=== PATIENT | female | born 1950 | race Caucasian/White ===

== ENCOUNTER 2017-06-30 13:29 | Inpatient (IN) | payer OTHER, MEDICARE ==
[2017-06-30] VITALS (9 sets, daily range): BP systolic 102–210; BP diastolic 51–143; PULSE 62–85; RESP 16–24; TEMP 98–100.8; O2SAT 91–100
[~2017-06-30] VITALS: Ht 142.2 cm; Wt 146.3 kg
[~2017-06-30 13:29] MED LIST: FURO40TA PO; LEVA250T14 PO; LEVO175T2 PO; LISI-360 PO
[2017-06-30] MEDS ORDERED: TRAM50TA PO (14:01)
[2017-06-30] MEDS ORDERED: LISI10TA3 PO (14:01)
[2017-06-30] MEDS ORDERED: LEVO175T2 PO (14:01)
[2017-06-30] MEDS ORDERED: SODIUM CHLOR 0.9% 1000 ML INJ 1,000 ML IV SCH (14:19)
--- NOTE | 2017-06-30 14:21 | PD ---
HPI Chief Complaint: Flank/Kidney Pain Time Seen by Provider: 14:05 Travel History International Travel<30 days: No Contact w/Intl Traveler<30days: No Traveled to known affect area: No History of Present Illness HPI 67 year old female presents for evaluation of severe right sided abdominal and flank pain. She states that this began earlier this morning and that her pain was so severe that she thought she was going to pass out. She has never had pain like this before. Roughly one week ago she was told she had a renal stone that was too large to pass and that she would need to lose weight before lithotripsy could be performed. She was also diagnosed with a Urinary tract infection on Tuesday for which she was prescribed Cipro. She has history of bowel obstruction following a herniorrhaphy. She acknowledges nausea without vomiting, no diarrhea or constipation. She has fevers and chills. She denies chest pain and shortness of breath. PFSH Past Medical History Asthma: No Autoimmune Disease: No Blood Disorders: No Cancer: No Cardiovascular Problems: Yes (MITRO VALVE PROLAPS ) COPD: No Endocrine: No Gastrointestinal Disorders: Yes (BOWEL OBSTRUCTION) GERD: Yes Glaucoma: No Genitourinary: No Hepatitis: No Hiatal Hernia: Yes Hypertension: Yes Medical other: Yes (obesity, osteoarthritis, hemorrhoids) Musculoskeletal: No Neurologic: No Psychiatric: No Respiratory: Yes Sleep Apnea: No Thyroid Disease: Yes (Hypo) Ulcer: No Past Surgical History Abdominal Surgery: Yes (partial colectomy, umbilical hernia repair) Cardiac Surgery: No Ear Surgery: No Endocrine Surgery: No Eye Surgery: No Genitourinary Surgery: No Gynecologic Surgery: No Oral Surgery: Yes (T&A) Thoracic Surgery: No Tonsillectomy: Yes Other Surgery: Yes Social History Alcohol Use: Yes (TWO DRINKS A WEEK ) Tobacco Use: No Substance Use: No Allergies-Medications (Allergen,Severity, Reaction): Coded Allergies: No Known Allergies (Verified Allergy, Unknown, 06/30/17) Uncoded Allergies: NKDA (Allergy, Unknown, 04/02/03) NONE (Allergy, Unknown, 04/02/03) Reported Meds & Prescriptions Reported Meds & Active Scripts Active Reported Tramadol (Tramadol HCl) 50 Mg Tab 50 Mg PO Q6H PRN Levothyroxine (Levothyroxine Sodium) 175 Mcg Tab 175 Mcg PO DAILY Lisinopril 10 Mg Tab 10 Mg PO DAILY Review of Systems Except as stated in HPI: all other systems reviewed are Neg General / Constitutional: Positive: Fever, Chills Eyes: No: Blurred Vision HENT: Positive: Lightheadedness, No: Headaches Cardiovascular: No: Chest Pain or Discomfort Respiratory: No: Cough, Shortness of Breath Gastrointestinal: Positive: Nausea, No: Vomiting, Diarrhea Genitourinary: Positive: Urgency, Frequency, Dysuria Skin: No Rash, No Itching Neurologic: No: Weakness, Dizziness Physical Exam Narrative GENERAL: patient is laying in bed moaning in pain. SKIN: Warm and dry. HEAD: Atraumatic. Normocephalic. EYES: Pupils equal and round. No scleral icterus. No injection or drainage. ENT: No nasal bleeding or discharge. Mucous membranes pink and moist. NECK: Trachea midline. No JVD. CARDIOVASCULAR: Regular rate and rhythm. RESPIRATORY: No accessory muscle use. Clear to auscultation. Breath sounds equal bilaterally. GASTROINTESTINAL: Abdomen soft, Tender to palpation in the R flank, RLQ and CVA tenderness. Hepatic and splenic margins not palpable. MUSCULOSKELETAL: Extremities without clubbing, cyanosis, or edema. No obvious deformities. NEUROLOGICAL: Awake and alert. No obvious cranial nerve deficits. Motor grossly within normal limits. Five out of 5 muscle strength in the arms and legs. Normal speech. PSYCHIATRIC: Appropriate mood and affect; insight and judgment normal. Data Data Last Documented VS Vital Signs Date Time Temp Pulse Resp B/P (MAP) Pulse Ox O2 Delivery O2 Flow Rate FiO2 06/30/17 15:21 77 18 210/93 (132) 99 Nasal Cannula 3.00 06/30/17 15:06 98.4 Orders Orders Urinalysis - C+S If Indicated (06/30/17 13:34) Complete Blood Count With Diff (06/30/17 14:19) Comprehensive Metabolic Panel (06/30/17 14:19) Lipase (06/30/17 14:19) Lactic Acid (06/30/17 14:19) Prothrombin Time / Inr (Pt) (06/30/17 14:19) Act Partial Throm Time (Ptt) (06/30/17 14:19) Ct Abd/Pel W Iv Contrast(Rout) (06/30/17 14:19) Iv Access Insert/Monitor (06/30/17 14:19) Ecg Monitoring (06/30/17 14:19) Oximetry (06/30/17 14:19) Ondansetron Inj (Zofran Inj) (06/30/17 14:30) Sodium Chlor 0.9% 1000 Ml Inj (Ns 1000 M (06/30/17 14:19) Sodium Chloride 0.9% Flush (Ns Flush) (06/30/17 14:30) Electrocardiogram (06/30/17 14:19) Ketorolac Inj (Toradol Inj) (06/30/17 14:30) Sodium Chlor 0.9% 1000 Ml Inj (Ns 1000 M (06/30/17 14:30) Morphine Inj (Morphine Inj) (06/30/17 15:15) Iohexol 350 Inj (Omnipaque 350 Inj) (06/30/17 16:08) Insert Temp Sensing Clemens Cath (06/30/17 16:18) Hydromorphone Pf Inj (Dilaudid Pf Inj) (06/30/17 16:45) Labs Laboratory Tests Test 06/30/17 13:34 06/30/17 13:50 06/30/17 14:30 Urine Color LIGHT-YELLOW Urine Turbidity CLEAR Urine pH 7.0 Urine Specific [place] 1.016 Urine Protein NEG mg/dL Urine Glucose (UA) NEG mg/dL Urine Ketones NEG mg/dL Urine Occult Blood TRACE Urine Nitrite NEG Urine Bilirubin NEG Urine Urobilinogen LESS THAN 2.0 MG/DL Urine Leukocyte Esterase MOD Urine RBC 6 /hpf Urine WBC 21 /hpf Urine Bacteria RARE /hpf Microscopic Urinalysis Comment CULTURE INDICATED White Blood Count 9.7 TH/MM3 Red Blood Count 4.32 MIL/MM3 Hemoglobin 11.8 GM/DL Hematocrit 36.8 % Mean Corpuscular Volume 85.2 FL Mean Corpuscular Hemoglobin 27.4 PG Mean Corpuscular Hemoglobin Concent 32.1 % Red Cell Distribution Width 15.3 % Platelet Count 169 TH/MM3 Mean Platelet Volume 9.0 FL Neutrophils (%) (Auto) 86.4 % Lymphocytes (%) (Auto) 6.6 % Monocytes (%) (Auto) 5.8 % Eosinophils (%) (Auto) 0.8 % Basophils (%) (Auto) 0.4 % Neutrophils # (Auto) 8.3 TH/MM3 Lymphocytes # (Auto) 0.6 TH/MM3 Monocytes # (Auto) 0.6 TH/MM3 Eosinophils # (Auto) 0.1 TH/MM3 Basophils # (Auto) 0.0 TH/MM3 CBC Comment DIFF FINAL Differential Comment Prothrombin Time 10.5 SEC Prothromb Time International Ratio 1.0 RATIO Activated Partial Thromboplast Time 23.1 SEC Blood Urea Nitrogen 14 MG/DL Creatinine 0.72 MG/DL Random Glucose 122 MG/DL Total Protein 7.3 GM/DL Albumin 3.8 GM/DL Calcium Level 9.0 MG/DL Alkaline Phosphatase 50 U/L Aspartate Amino Transf (AST/SGOT) 13 U/L Alanine Aminotransferase (ALT/SGPT) 19 U/L Total Bilirubin 0.8 MG/DL Sodium Level 140 MEQ/L Potassium Level 3.7 MEQ/L Chloride Level 104 MEQ/L Carbon Dioxide Level 27.3 MEQ/L Anion Gap 9 MEQ/L Estimat Glomerular Filtration Rate 81 ML/MIN Lipase 105 U/L Lactic Acid Level 1.2 mmol/L MDM Medical Decision Making Medical Screen Exam Complete: Yes Emergency Medical Condition: Yes Differential Diagnosis Nephrolithiasis, Urinary tract infection, Hydronephrosis, Pyelonephritis, appendicitis Narrative Course CBC, CMP, U/A, noncontrast CT abdomen & pelvis. Patient roomed emergency department, appears quite uncomfortable, CT confirms an 11 x 13 mm obstructing UPJ stone. Feeling more comfortable after Toradol and morphine she still having some pain though, and he wanted was ordered. Patient was discussed with Dr. Rock recommends admission and nothing by mouth after midnight for probable stent placement in the morning. Still awaiting UA results the patient was discussed with Dr. Rinaldi for admission. Patient does have some white blood cells present in the urine but nitrate negative, not wholly impressive, I have ordered a dose of Rocephin however to make sure she is covered until urine culture can be followed. Diagnosis Primary Impression: Uropathy, obstructive Disposition: 01 DISCHARGE HOME Condition: Stable Frank Gage MD Jun 30, 2017 14:21
[2017-06-30] MEDS ORDERED: SODIUM CHLORIDE 0.9% FLUSH 10 ML FLUSH IV FLUSH PRN ×2 (14:30→17:30)
[2017-06-30] MEDS ORDERED: KETOROLAC TROMETHAMINE 30 MG/ML (IVP) VIAL IVP ONE (14:30)
[2017-06-30] MEDS ORDERED: SODIUM CHLOR 0.9% 1000 ML INJ 1,000 ML IV ONE (14:30)
[2017-06-30] MEDS ORDERED: ONDANSETRON HCL 4 MG/2 ML VIAL IVP ONE (14:30)
[2017-06-30] MEDS ORDERED: MORPHINE SULFATE 4 MG/ML INJ IV PUSH ONE (15:15)
[2017-06-30 15:22] LABS: AUTOMATED NEUTROPHIL # 8.3 TH/MM3 (1.8-7.7); BASOPHIL % 0.4 % (0.0-2.0); EOSINOPHIL # 0.1 TH/MM3 (0-0.4); EOSINOPHIL % 0.8 % (0.0-4.0); HEMATOCRIT 36.8 % (35.0-46.0); HEMO FLAGS DIFF FINAL; LYMPH % 6.6 % (9.0-44.0); LYMPHOCYTE # 0.6 TH/MM3 (1.0-4.8); MEAN CELL VOLUME 85.2 FL (80.0-100.0); MEAN CORPUSCULAR HEMOGLOBIN 27.4 PG (27.0-34.0); MEAN CORPUSCULAR HGB CONC 32.1 % (32.0-36.0); MONO % 5.8 % (0.0-8.0); NEUT % 86.4 % (16.0-70.0); PLATELET COUNT 169 TH/MM3 (150-450); RED BLOOD COUNT 4.32 MIL/MM3 (4.00-5.30); RED CELL DISTRIBUTION WIDTH 15.3 % (11.6-17.2); WHITE BLOOD COUNT 9.7 TH/MM3 (4.0-11.0)
[2017-06-30 15:38] LABS: ANION GAP 9 MEQ/L (5-15); APTT (PATIENT) 23.1 SEC (24.3-30.1); AST (GOT) 13 U/L (15-37); BICARBONATE 27.3 MEQ/L (21.0-32.0); BLOOD UREA NITROGEN 14 MG/DL (7-18); CHLORIDE 104 MEQ/L (98-107); GLOMERULAR FILTRATION RATE 81 ML/MIN (>89); POTASSIUM 3.7 MEQ/L (3.5-5.1); PROTHROMBIN TIME - PATIENT 10.5 SEC (9.8-11.6); SODIUM (NA) 140 MEQ/L (136-145)
[2017-06-30 15:42] LABS: ALKALINE PHOSPHATASE 50 U/L (45-117); ALT (GPT) 19 U/L (10-53); TOTAL BILIRUBIN ADULT 0.8 MG/DL (0.2-1.0)
[2017-06-30] MEDS ORDERED: IOHEXOL 350 MG/ML 10 ML VIAL (for RAD DIAG) IVCONTRAST ONE (16:08)
--- NOTE | 2017-06-30 16:25 | RADRPT ---
EXAM DATE/TIME: 06/30/2017 16:00 [facility] COMPARISON: No previous studies available for comparison. INDICATIONS : Right flank pain IV CONTRAST: 67 cc Omnipaque 350 (iohexol) IV ORAL CONTRAST: No oral contrast ingested. RADIATION DOSE: 29.38 CTDIvol (mGy) MEDICAL HISTORY : Hypertension. Cardiovascular disease SURGICAL HISTORY : Hernia repair ENCOUNTER: Initial ACUITY: 1 day PAIN SCALE: 10/10 LOCATION: Right flank TECHNIQUE: Volumetric scanning of the abdomen and pelvis was performed. Using automated exposure control and ad justment of the mA and/or kV according to patient size, radiation dose was kept as low as reasonably achievable to obtain optimal diagnostic quality images. DICOM format image data is available electro nically for review and comparison. FINDINGS: LOWER LUNGS: The visualized lower lungs are clear. LIVER: Homogeneous density without lesion. The liver measures 18.2 cm. There is no dilation of the biliary tree. No calcified gallstones. SPLEEN: Normal size without lesion. PANCREAS: Within normal limits. KIDNEYS: Right kidney demonstrates delayed nephrogram with hydronephrosis caused by a 13 x 11 mm stone at the ureteropelvic junction. There is perinephric inflammation. The left kidney is within normal limits. ADRENAL GLANDS: There is a left adrenal gland mass arising from the lateral limb measuring 2.5 x 2.1 cm with Hounsfie ld measurements of 31. Right adrenal gland is within normal limits. VASCULAR: There is no aortic aneurysm. There is mild atherosclerotic disease. BOWEL/MESENTERY: The stomach, small bowel, and colon demonstrate no acute abnormality. There is no free intraperitone al air or fluid. ABDOMINAL WALL: There is anterior abdominal wall laxity with a mesh anteriorly related to prior hernia repair. RETROPERITONEUM: There is no lymphadenopathy. BLADDER: No wall thickening or mass. REPRODUCTIVE: Within normal limits. INGUINAL: There is no lymphadenopathy or hernia. MUSCULOSKELETAL: There are degenerative changes of the lumbar spine. No acute abnormality is seen. There is severe ost eoarthritis of the right hip joint. CONCLUSION: 1. There is a 13 x 11 mm right renal stone causing obstruction at the UPJ level resulting in hydronep hrosis and right perinephric inflammation. No other renal stones are present. 2. There is a left adrenal gland mass measuring 2.5 cm. It does not meet criteria for an adenoma on t his contrast-enhanced examination. Suggest correlating with any prior imaging studies that could conf irm stability. If no prior studies are available consider six-month followup adrenal protocol CT or M RI. 3. Severe right hip joint osteoarthritis. Lloyd Yoo MD on June 30, 2017 at 16:17 Board Certified Radiologist. This report was verified electronically.
[2017-06-30] MEDS ORDERED: HYDROmorphone HCL PF 1 MG/ML VIAL IV PUSH ONE (16:45)
--- NOTE | 2017-06-30 16:58 | EKG ---
Date Performed: 06/30/2017 Time Performed: 14:33:38 PTAGE: 67 years EKG: Baseline artifact present SINUS BRADYCARDIA MODERATE INTRAVENTRICULAR CONDUCTION DELAY BORD KANA ECG No significant change from prior electrocardiogram. PREVIOUS TRACING : 08/06/2011 08.26 DOCTOR: Surinder Valenzuela Interpretating Date/Time 06/30/2017 16:56:59
[2017-06-30] MEDS ORDERED: SENNOSIDES 8.6 MG TAB PO PRN (17:30)
[2017-06-30] MEDS ORDERED: NALOXONE HCL 0.4 MG/ML AMP IV PUSH PRN (17:30)
[2017-06-30] MEDS ORDERED: BISACODYL 10 MG SUPP RECTAL PRN (17:30)
[2017-06-30] MEDS ORDERED: ONDANSETRON HCL 4 MG/2 ML VIAL IVP PRN (17:30)
[2017-06-30] MEDS ORDERED: MAGNESIUM HYDROXIDE SUSP 30 ML CUP PO PRN (17:30)
[2017-06-30] MEDS ORDERED: LACTULOSE SYRUP 20 GM/30 ML CUP PO PRN (17:30)
[2017-06-30] MEDS ORDERED: ACETAMINOPHEN 325 MG TAB PO PRN (17:30)
[2017-06-30] MEDS ORDERED: oxyCODONE/ACETAMINOPHEN 5 MG/325 MG TAB PO PRN (17:30)
[2017-06-30 17:54] LABS: BACTERIA, URINE RARE /hpf; BLOOD, URINE TRACE (NEG); COMMENT (UR) CULTURE INDICATED; CULTURE IF INDICATED CULTURE INDICATED; GLUCOSE,URINE NEG (NEG); KETONE, URINE NEG (NEG); NITRITE,URINE NEG (NEG); URINE COLOR LIGHT-YELLOW (YELLW/STRAW)
[2017-06-30] MEDS ORDERED: cefTRIAXone INJ 1,000 MG in SODIUM CHLORIDE 0.9% INJ 100 ML IV ONE (18:00)
--- NOTE | 2017-06-30 18:05 | HHI.HP ---
HPI Service [facility] Primary Care Physician Saurav Muñoz MD Admission Diagnosis Obstructive Uropathy. Diagnoses: Chief Complaint: Abdominal and flank pain Travel History International Travel<30 Days: No Contact w/Intl Traveler <30 Da: No Traveled to Known Affected Are: No History of Present Illness Written by Anastasiia Dawn, acting as scribe for Dr. Cartagena on 06/30/17 at 17:50. Patient is a 67-year-old female with primary medical history of mitral valve prolapse, hiatal hernia, morbid obesity, hypothyroidism, bowel obstruction who came into the hospital with severe right-sided abdominal and flank pain. Patient states it is kidney stone about a week ago and that it was too large to pass that she should need to lose weight before doing a lithotripsy. She was seen at the [facility]. Patient was also found to have urinary tract infection and was started on Cipro. However patient states that she did not start the Cipro because she is having her dental work done. Patient had her tooth pulled this morning and it was the first time that she took the Cipro. Patient states that she had small bowel obstruction secondary to lysis of adhesion from hernia repair. States that her pain is now 6/10, right side to right flank area states it has improved after being given morphine. Patient reports chills. Denies chest pain, palpitations. Denies shortness of breath or dyspnea however she states that she cannot take deep breath earlier because of the pain that her saturation went down to the 80s and now she is on O2 nasal cannula. Denies nausea, vomiting, diarrhea. Denies dysuria or hematuria. Review of Systems Except as stated in HPI: all other systems reviewed are Neg Past Family Social History Past Medical History Bowel obstruction Mitral valve prolapse Hiatal hernia Morbid obesity Osteoporosis Hypothyroidism. Umbilical Hernia Past Surgical History Partial colectomy Umbilical hernia repair Tonsillectomy Reported Medications Reported Meds & Active Scripts Active Reported Tramadol (Tramadol HCl) 50 Mg Tab 50 Mg PO Q6H PRN Levothyroxine (Levothyroxine Sodium) 175 Mcg Tab 175 Mcg PO DAILY Lisinopril 10 Mg Tab 10 Mg PO DAILY Allergies: Coded Allergies: No Known Allergies (Verified Allergy, Unknown, 06/30/17) Uncoded Allergies: NKDA (Allergy, Unknown, 04/02/03) NONE (Allergy, Unknown, 04/02/03) Active Ordered Medications Current Medications Medications (Trade) Dose Ordered Sig/Catrachita Route Start Time Stop Time Status Last Admin (NS Flush) 2 ml UNSCH PRN IV FLUSH 06/30/17 14:30 06/30/17 14:31 Sodium Chloride 1,000 ml @ 100 mls/hr Q10H IV 06/30/17 17:30 (NS Flush) 2 ml UNSCH PRN IV FLUSH 06/30/17 17:30 (NS Flush) 2 ml BID IV FLUSH 06/30/17 21:00 (Tylenol) 650 mg Q4H PRN PO 06/30/17 17:30 (Zofran Inj) 4 mg Q6H PRN IVP 06/30/17 17:30 (Percocet 5-325 Mg) 1 tab Q6H PRN PO 06/30/17 17:30 (Percocet 10-325 Mg) 1 tab Q6H PRN PO 06/30/17 17:30 (Dilaudid Pf Inj) 1 mg Q4H PRN IV PUSH 06/30/17 17:30 (Narcan Inj) 0.4 mg UNSCH PRN IV PUSH 06/30/17 17:30 (Gretchen-Colace) 1 tab BID PO 06/30/17 21:00 (Milk Of Magnesia Liq) 30 ml Q12H PRN PO 06/30/17 17:30 (Senokot) 17.2 mg Q12H PRN PO 06/30/17 17:30 (Dulcolax Supp) 10 mg DAILY PRN RECTAL 06/30/17 17:30 (Lactulose Liq) 30 ml DAILY PRN PO 06/30/17 17:30 (Synthroid) 100 mcg DAILY@0600 PO 07/01/17 06:00 (Prinivil) 10 mg DAILY PO 07/01/17 09:00 (Synthroid) 75 mcg DAILY@0600 PO 07/01/17 06:00 Family History Mother has diabetes type 2, recently diagnosed with CHF. Mother also has uterine cancer Father has heart disease, aneurysm. Father also has prostate cancer Social History Alcohol use, 2 drinks a week Denies tobacco use Denies illicit drug use Physical Exam Vital Signs Vital Signs Date Time Temp Pulse Resp B/P (MAP) Pulse Ox O2 Delivery O2 Flow Rate FiO2 06/30/17 17:34 98 06/30/17 16:49 99.9 79 24 149/78 (101) 99 Nasal Cannula 3.00 06/30/17 15:21 77 18 210/93 (132) 99 Nasal Cannula 3.00 06/30/17 15:06 98.4 73 18 184/143 (157) 99 Nasal Cannula 2.00 06/30/17 14:31 98.0 62 16 159/70 (99) 99 Room Air 06/30/17 13:48 59 16 06/30/17 13:43 98.0 64 16 166/72 (103) 95 Physical Exam GENERAL: This is a pleasant, morbidly obese, well-developed patient, in no apparent distress. SKIN: Cool and dry. Bilateral inner thigh areas with discoloration, appears to have some candidiasis HEAD: Normocephalic. No temporal or scalp tenderness. EYES: Pupils equal round and reactive. Extraocular motions intact. No scleral icterus. No injection or drainage. ENT: Nose without bleeding. Throat without erythema. Uvula midline. Airway patent. Blood clots Left upper molar removed NECK: Trachea midline. Supple. CARDIOVASCULAR: Regular rate and rhythm with 2/6 murmurs. No gallops, or rubs. RESPIRATORY: Clear to auscultation. Breath sounds equal bilaterally. No wheezes , rales, or rhonchi. GASTROINTESTINAL: Abdomen soft, obese, nondistended. Bowel sounds active 4. Tenderness to deep palpation right quadrant to flank area. : Clemens catheter in place draining clear yellow urine MUSCULOSKELETAL: Extremities without clubbing, cyanosis, or edema. NEUROLOGICAL: Awake and alert. Cranial nerves II through XII intact. Motor and sensory grossly within normal limits. Normal speech. Laboratory Laboratory Tests Test 06/30/17 13:34 06/30/17 13:50 06/30/17 14:30 White Blood Count 9.7 Red Blood Count 4.32 Hemoglobin 11.8 Hematocrit 36.8 Mean Corpuscular Volume 85.2 Mean Corpuscular Hemoglobin 27.4 Mean Corpuscular Hemoglobin Concent 32.1 Red Cell Distribution Width 15.3 Platelet Count 169 Mean Platelet Volume 9.0 Neutrophils (%) (Auto) 86.4 Lymphocytes (%) (Auto) 6.6 Monocytes (%) (Auto) 5.8 Eosinophils (%) (Auto) 0.8 Basophils (%) (Auto) 0.4 Neutrophils # (Auto) 8.3 Lymphocytes # (Auto) 0.6 Monocytes # (Auto) 0.6 Eosinophils # (Auto) 0.1 Basophils # (Auto) 0.0 CBC Comment DIFF FINAL Differential Comment Prothrombin Time 10.5 Prothromb Time International Ratio 1.0 Activated Partial Thromboplast Time 23.1 Blood Urea Nitrogen 14 Creatinine 0.72 Random Glucose 122 Total Protein 7.3 Albumin 3.8 Calcium Level 9.0 Alkaline Phosphatase 50 Aspartate Amino Transf (AST/SGOT) 13 Alanine Aminotransferase (ALT/SGPT) 19 Total Bilirubin 0.8 Sodium Level 140 Potassium Level 3.7 Chloride Level 104 Carbon Dioxide Level 27.3 Anion Gap 9 Estimat Glomerular Filtration Rate 81 Lipase 105 Lactic Acid Level 1.2 Result Diagram: 06/30/17 1350 06/30/17 1350 Imaging Last Impressions Abdomen/Pelvis CT 06/30/17 1419 Signed Impressions: Service Date/Time: June 16:00 - CONCLUSION: 1. There is a 13 x 11 mm right renal stone causing obstruction at the UPJ level resulting in hydronephrosis and right perinephric inflammation. No other renal stones are present. 2. There is a left adrenal gland mass measuring 2.5 cm. It does not meet criteria for an adenoma on this contrast-enhanced examination. Suggest correlating with any prior imaging studies that could confirm stability. If no prior studies are available consider six-month followup adrenal protocol CT or MRI. 3. Severe right hip joint osteoarthritis. MD Evelyne Al VTE Risk Assessment Caprini VTE Risk Assessment: Mod/High Risk (score >= 2) Caprini Risk Assessment Model Point Value = 1 Point Value = 2 Point Value = 3 Point Value = 5 Age 41-60 Minor surgery BMI > 25 kg/m2 Swollen legs Varicose veins or History of unexplained or recurrent spontaneous Oral contraceptives or hormone replacement Sepsis (< 1 month) Serious lung disease, including pneumonia (< 1 month) Abnormal pulmonary function Acute myocardial infarction Congestive heart failure (< 1 month) History of inflammatory bowel disease Medical patient at bed rest Age 61-74 Arthroscopic surgery Major open surgery (> 45 min) Laparoscopic surgery (> 45 min) Malignancy Confined to bed (> 72 hours) Immobilizing plaster cast Central venous access Age >= 75 History of VTE Family history of VTE Factor V Leiden Prothrombin [id number] Lupus anticoagulant Anticardiolipin antibodies Elevated serum homocysteine Heparin-induced thrombocytopenia Other congenital or acquired thrombophilia Stroke (< 1 month) Elective arthroplasty Hip, pelvis, or leg fracture Acute spinal cord injury (< 1 month) Prophylaxis Regimen Total Risk Factor Score Risk Level Prophylaxis Regimen 0-1 Low Early ambulation 2 Moderate Order ONE of the following: *Sequential Compression Device (SCD) *Heparin 5000 units SQ BID 3-4 Higher Order ONE of the following medications: *Heparin 5000 units SQ TID *Enoxaparin/Lovenox 40 mg SQ daily (WT < 150 kg, CrCl > 30 mL/min) *Enoxaparin/Lovenox 30 mg SQ daily (WT < 150 kg, CrCl > 10-29 mL/min) *Enoxaparin/Lovenox 30 mg SQ BID (WT < 150 kg, CrCl > 30 mL/min) AND/OR *Sequential Compression Device (SCD) 5 or more Highest Order ONE of the following medications: *Heparin 5000 units SQ TID (Preferred with Epidurals) *Enoxaparin/Lovenox 40 mg SQ daily (WT < 150 kg, CrCl > 30 mL/min) *Enoxaparin/Lovenox 30 mg SQ daily (WT < 150 kg, CrCl > 10-29 mL/min) *Enoxaparin/Lovenox 30 mg SQ BID (WT < 150 kg, CrCl > 30 mL/min) AND *Sequential Compression Device (SCD) Assessment and Plan Problem List: (1) Kidney stone ICD Code: N20.0 - Calculus of kidney Status: Acute (2) Uropathy, obstructive ICD Code: N13.9 - Obstructive and reflux uropathy, unspecified Status: Acute Assessment and Plan Patient is a 67-year-old female with primary medical history of mitral valve prolapse, hiatal hernia, morbid obesity, hypothyroidism, bowel obstruction who came into the hospital with severe right-sided abdominal and flank pain. Acute obstructive uropathy Kidney stone - CT of the abdomen and pelvis showed 1. There is a 13 x 11 mm right renal stone causing obstruction at the UPJ level resulting in hydronephrosis and right perinephric inflammation. No other renal stones are present. 2. There is a left adrenal gland mass measuring 2.5 cm. If this does not meet criteria for an adenoma on this contrast enhanced examination. Suggest correlating with any prior imaging studies to confirm stability. - Urology consult and plan for stent placement tomorrow - Clemens catheter inserted. - Nothing by mouth after midnight - IV fluids for hydration - Check UA, patient has history of urinary tract infection and has not started her antibiotic. She was placed on Cipro and just took 1 tablet this morning. - Patient was given IV ceftriaxone 1 dose in the ED - Pain management morphine IV - Monitor labs in a.m. Trend renal indices. Hypothyroidism - Continue home dose levothyroxine History of mitral valve prolapse - Continue home dose lisinopril DVT prop SCDs This note was transcribed by RENO Chandler . I, Dr. Lina Cartagena personally performed the history, physical exam, and medical decision making; and confirmed the accuracy of the information in the transcribed note. Authenticated by Dr. Lina Cartagena on 06/30/17 at 17:50. Code Status Full code Discussed Condition With Patient, nursing, ED attending Physician Certification 2 Midnight Certification Type: Admission for Inpatient Services Order for Inpatient Services The services are ordered in accordance with Medicare regulations or non- Medicare payer requirements, as applicable. In the case of services not specified as inpatient-only, they are appropriately provided as inpatient services in accordance with the 2-midnight benchmark. Estimated LOS (days): 2 days is the estimated time the patient will need to remain in the hospital, assuming treatment plan goals are met and no additional complications. Post-Hospital Plan: Home Anastasiia Casey Jun 30, 2017 18:05 Lina Cartagena MD Jun 30, 2017 18:06
[2017-06-30] MEDS: SODIUM CHLOR 0.9% 1000 ML INJ 1,000 ML IV SCH (18:22)
[2017-06-30] MEDS: SODIUM CHLORIDE 0.9% FLUSH 10 ML FLUSH IV FLUSH SCH (21:00)
[2017-06-30] MEDS: DOCUSATE SODIUM 50 MG/SENNA 8.6 MG TAB PO SCH (21:00)
[2017-07-01] VITALS (8 sets, daily range): BP systolic 106–148; BP diastolic 55–72; PULSE 58–91; RESP 16–18; TEMP 97.7–102; O2SAT 78–100
[2017-07-01] MEDS: SODIUM CHLOR 0.9% 1000 ML INJ 1,000 ML IV SCH ×2 (03:30→22:23)
[2017-07-01] MEDS: LEVOTHYROXINE SODIUM 75 MCG TAB PO SCH ×2 (04:56→05:03)
[2017-07-01] MEDS: HYDROmorphone HCL PF 1 MG/ML VIAL IV PUSH PRN ×2 (04:56→09:14)
[2017-07-01] MEDS: LEVOTHYROXINE SODIUM 100 MCG TAB PO SCH ×2 (04:57→05:03)
[2017-07-01] MEDS ORDERED: LEVO25TA4 PO (05:05)
[2017-07-01] MEDS ORDERED: LISINOPRIL 10 MG TAB PO SCH (09:00)
[2017-07-01] MEDS: DOCUSATE SODIUM 50 MG/SENNA 8.6 MG TAB PO SCH ×2 (09:00→21:00)
[2017-07-01] MEDS: SODIUM CHLORIDE 0.9% FLUSH 10 ML FLUSH IV FLUSH SCH ×2 (09:14→22:23)
[2017-07-01 09:31] LABS: AUTOMATED NEUTROPHIL # 8.1 TH/MM3 (1.8-7.7); BASOPHIL % 0.2 % (0.0-2.0); EOSINOPHIL # 0.1 TH/MM3 (0-0.4); EOSINOPHIL % 0.9 % (0.0-4.0); HEMATOCRIT 38.5 % (35.0-46.0); HEMO FLAGS DIFF FINAL; LYMPH % 4.2 % (9.0-44.0); LYMPHOCYTE # 0.4 TH/MM3 (1.0-4.8); MEAN CELL VOLUME 85.3 FL (80.0-100.0); MEAN CORPUSCULAR HEMOGLOBIN 26.9 PG (27.0-34.0); MEAN CORPUSCULAR HGB CONC 31.6 % (32.0-36.0); MONO % 3.1 % (0.0-8.0); NEUT % 91.6 % (16.0-70.0); PLATELET COUNT 145 TH/MM3 (150-450); RED BLOOD COUNT 4.52 MIL/MM3 (4.00-5.30); RED CELL DISTRIBUTION WIDTH 15.3 % (11.6-17.2); WHITE BLOOD COUNT 8.9 TH/MM3 (4.0-11.0)
[2017-07-01 09:52] LABS: ANION GAP 8 MEQ/L (5-15); AST (GOT) 18 U/L (15-37); BICARBONATE 23.7 MEQ/L (21.0-32.0); BLOOD UREA NITROGEN 19 MG/DL (7-18); CHLORIDE 104 MEQ/L (98-107); GLOMERULAR FILTRATION RATE 48 ML/MIN (>89); POTASSIUM 4.1 MEQ/L (3.5-5.1); SODIUM (NA) 136 MEQ/L (136-145)
[2017-07-01 09:54] LABS: ALT (GPT) 15 U/L (10-53)
[2017-07-01 09:56] LABS: ALKALINE PHOSPHATASE 48 U/L (45-117)
--- NOTE | 2017-07-01 12:02 | HHI.PR ---
Subjective Remarks Patient c/o right flank pain. States felt cold earlier today but now is feeling warm. Fever overnight with a T max of 100.8. Denies cp/mild sob earlier which improved after she sat up. Noted that patient desated into the high 70's earlier today in am. Denies nausea or vomiting. Objective Vitals Vital Signs Date Time Temp Pulse Resp B/P (MAP) Pulse Ox O2 Delivery O2 Flow Rate FiO2 07/01/17 10:22 92 Nasal Cannula 2.00 07/01/17 08:04 98.9 82 16 148/72 (97) 78 07/01/17 05:12 98.0 58 18 106/57 (73) 100 06/30/17 23:37 98.8 65 20 102/52 (69) 94 06/30/17 20:08 98.6 84 20 106/51 (69) 91 06/30/17 18:32 06/30/17 18:13 100.8 85 20 146/63 (90) 100 Nasal Cannula 2.00 06/30/17 17:34 98 06/30/17 16:49 99.9 79 24 149/78 (101) 99 Nasal Cannula 3.00 06/30/17 15:21 77 18 210/93 (132) 99 Nasal Cannula 3.00 06/30/17 15:06 98.4 73 18 184/143 (157) 99 Nasal Cannula 2.00 06/30/17 14:31 98.0 62 16 159/70 (99) 99 Room Air 06/30/17 13:48 59 16 06/30/17 13:43 98.0 64 16 166/72 (103) 95 I/O 06/30/17 06/30/17 06/30/17 07/01/17 07/01/17 07/01/17 07:00 15:00 23:00 07:00 15:00 23:00 Intake Total 2100 ml 2173 ml Output Total 900 ml Balance 2100 ml 1273 ml Intake Oral 240 ml IV Total 2100 ml 1933 ml Output Urine Total 900 ml # Voids 0 # Bowel Movements 1 Result Diagram: 07/01/17 0820 07/01/17 0820 Imaging Last Impressions Abdomen/Pelvis CT 06/30/17 8809 Signed Impressions: Service Date/Time: June 16:00 - CONCLUSION: 1. There is a 13 x 11 mm right renal stone causing obstruction at the UPJ level resulting in hydronephrosis and right perinephric inflammation. No other renal stones are present. 2. There is a left adrenal gland mass measuring 2.5 cm. It does not meet criteria for an adenoma on this contrast-enhanced examination. Suggest correlating with any prior imaging studies that could confirm stability. If no prior studies are available consider six-month followup adrenal protocol CT or MRI. 3. Severe right hip joint osteoarthritis. Lloyd Yoo MD Objective Remarks AAOx3 NAD lying in bed Lungs clear to auscultation BL, no wheezing or rhonchi auscultated. abdomen soft, nt, nd - R CVA tenderness tenderness to palpation of BL calfs more prominent on the left, no erythema or warmth associated. There is good palpable peripheral pulses in both lower extremities. Warm and moist skin Medications and IVs Current Medications Medications (Trade) Dose Ordered Sig/Catrachita Route Start Time Stop Time Status Last Admin (NS Flush) 2 ml UNSCH PRN IV FLUSH 06/30/17 14:30 06/30/17 14:31 Sodium Chloride 1,000 ml @ 100 mls/hr Q10H IV 06/30/17 17:30 07/01/17 03:30 (NS Flush) 2 ml UNSCH PRN IV FLUSH 06/30/17 17:30 (NS Flush) 2 ml BID IV FLUSH 06/30/17 21:00 07/01/17 09:14 (Tylenol) 650 mg Q4H PRN PO 06/30/17 17:30 (Zofran Inj) 4 mg Q6H PRN IVP 06/30/17 17:30 07/01/17 05:00 (Percocet 5-325 Mg) 1 tab Q6H PRN PO 06/30/17 17:30 (Percocet 10-325 Mg) 1 tab Q6H PRN PO 06/30/17 17:30 (Dilaudid Pf Inj) 1 mg Q4H PRN IV PUSH 06/30/17 17:30 07/01/17 09:14 (Narcan Inj) 0.4 mg UNSCH PRN IV PUSH 06/30/17 17:30 (Gretchen-Colace) 1 tab BID PO 06/30/17 21:00 (Milk Of Magnesia Liq) 30 ml Q12H PRN PO 06/30/17 17:30 (Senokot) 17.2 mg Q12H PRN PO 06/30/17 17:30 (Dulcolax Supp) 10 mg DAILY PRN RECTAL 06/30/17 17:30 (Lactulose Liq) 30 ml DAILY PRN PO 06/30/17 17:30 (Synthroid) 100 mcg DAILY@0600 PO 07/01/17 06:00 (Prinivil) 10 mg DAILY PO 07/01/17 09:00 (Synthroid) 75 mcg DAILY@0600 PO 07/01/17 06:00 A/P Problem List: (1) Sepsis ICD Code: A41.9 - Sepsis, unspecified organism Plan: Patient is a 67-year-old female with primary medical history of mitral valve prolapse, hiatal hernia, morbid obesity, hypothyroidism, bowel obstruction who came into the hospital with severe right-sided abdominal and flank pain. Sepsis present on admission, patient presented with respiratory rate of 24 and a MAXIMUM TEMPERATURE of 100.8 on day of presentation to the hospital. The patient was given IV Rocephin in the emergency department. CT of the abdomen and pelvis showed 1. There is a 13 x 11 mm right renal stone causing obstruction at the UPJ level resulting in hydronephrosis and right perinephric inflammation. No other renal stones are present. 2. There is a left adrenal gland mass measuring 2.5 cm. If this does not meet criteria for an adenoma on this contrast enhanced examination. Suggest correlating with any prior imaging studies to confirm stability. Sepsis likely secondary to pyelonephritis. I will start the patient on IV Zosyn, obtain blood cultures and check lactic acid as per sepsis protocol. Neurology consulted, recommendations pending. Patient was on IV fluids for hydration, however given low oxygen saturation earlier today. Continue pain management and IV morphine. (2) Pyelonephritis ICD Code: N12 - Tubulo-interstitial nephritis, not specified as acute or chronic Plan: Started on IV Zosyn. (3) Uropathy, obstructive ICD Code: N13.9 - Obstructive and reflux uropathy, unspecified Status: Acute Plan: Acute abdomen and pelvis as described above. Neurology consulted, most likely will need stent placement. (4) Acute respiratory failure ICD Code: J96.00 - Acute respiratory failure, unspecified whether with hypoxia or hypercapnia Plan: Patient had an oxygen saturation into the high 70s. Currently on 2 L nasal cannula satting 92%. Continue with supplemental oxygen to keep oxygen saturation more than 92%. Will check a chest x-ray and a BNP. (5) Hypothyroidism ICD Code: E03.9 - Hypothyroidism, unspecified Plan: Continue levothyroxine 175 mg by mouth daily, dose which she is taking at home. We'll check TSH if not previously done. (6) H/O mitral valve prolapse ICD Code: Z86.79 - Personal history of other diseases of the circulatory system Plan: Continue lisinopril. (7) Hydronephrosis of right kidney ICD Code: N13.30 - Unspecified hydronephrosis Plan: As per CT abdomen and pelvis described above. The patient has a ureteral stone in the right UPJ causing obstruction and hydronephrosis. Urology consulted, the patient will likely need a ureteral stent placement. (8) Adrenal mass, left ICD Code: E27.9 - Disorder of adrenal gland, unspecified Plan: CT of the abdomen and pelvis describes a 2.5 cm left adrenal gland mass. Upon review of the medical records, the patient had a CT of the abdomen and pelvis done in 07/16/05 comparison institution which described a stable 2 cm left adrenal gland mass. I recommend follow-up in 6 months with an adrenal protocol CT or MRI. (9) Bilateral calf pain ICD Code: M79.661 - Pain in right lower leg; M79.662 - Pain in left lower leg Plan: Bilateral Pain on exam. I will order venous Doppler ultrasound to rule out DVT. Assessment and Plan DVT prophylaxis: The patient currently on SCDs, I will add subcutaneous heparin. GI prophylaxis: Given that the patient has sepsis I will order a PPI. Discharge Planning Pending urology consultation and possible stent placement. Pending cultures and clinical resolution of sepsis. Problem Qualifiers (1) Acute respiratory failure: Qualified Codes: J96.01 - Acute respiratory failure with hypoxia (2) Hypothyroidism: Qualified Codes: E03.9 - Hypothyroidism, unspecified Kelton Garcia MD Jul 01, 2017 12:01
[2017-07-01] MEDS ORDERED: POVIDONE IODINE 5% (ANTISEPSIS KIT) 4 APPLICATIONS EACH NARE PRN (12:45)
[2017-07-01] MEDS ORDERED: CHLORHEXIDINE GLUCONATE 2 % 1 PACK (2 CLOTHS) TOPICAL PRN (12:45)
[2017-07-01] MEDS ORDERED: LACTATED RINGER'S 1000 ML IV PRN (12:45)
[2017-07-01] MEDS ORDERED: INSULIN HUMAN REGULAR 1,000 UNITS/10 ML VIAL SQ PRN (12:45)
[2017-07-01] MEDS ORDERED: SODIUM CHLORID 0.9% 500 ML IV PRN (12:45)
[2017-07-01] MEDS ORDERED: METOPROLOL TARTRATE 25 MG TAB PO PRN (12:45)
--- NOTE | 2017-07-01 12:58 | PD.CONS ---
[facility] Service Urology Consult Requested By Dr. Cartagena Reason for Consult Obstructing right renal calculus Primary Care Physician Saurav Muñoz MD Diagnosis: (1) Sepsis ICD Code: A41.9 - Sepsis, unspecified organism (2) Pyelonephritis ICD Code: N12 - Tubulo-interstitial nephritis, not specified as acute or chronic (3) Uropathy, obstructive ICD Code: N13.9 - Obstructive and reflux uropathy, unspecified (4) Acute respiratory failure ICD Code: J96.00 - Acute respiratory failure, unspecified whether with hypoxia or hypercapnia (5) Hypothyroidism ICD Code: E03.9 - Hypothyroidism, unspecified (6) H/O mitral valve prolapse ICD Code: Z86.79 - Personal history of other diseases of the circulatory system (7) Hydronephrosis of right kidney ICD Code: N13.30 - Unspecified hydronephrosis (8) Adrenal mass, left ICD Code: E27.9 - Disorder of adrenal gland, unspecified (9) Bilateral calf pain ICD Code: M79.661 - Pain in right lower leg; M79.662 - Pain in left lower leg History of Present Illness 67-year-old female with a known history of a greater than 1 cm right renal calculus who has been managed conservatively by her established urologist Dr. Aguirre who presented to the emergency room with acute onset right flank pain, fever and shaking chills. Workup included a CT scan that demonstrated a 13 mm obstructing right ureteropelvic junction calculus. Patient was started on antibiotic therapy and a urology consult placed. At the time of consultation the patient continued to complain of fever and shaking chills. She reported that her pain was adequately controlled with analgesic medication. She reported that she was informed she needed to lose weight prior to treating the known right renal calculus. She denied history of gross hematuria. She reported that she is a [employer] and cannot receive any blood products. Review of Systems Constitutional: COMPLAINS OF: Fever, Chills Gastrointestinal: DENIES: Abdominal pain Musculoskeletal: COMPLAINS OF: Back pain (right flank) Except as stated in HPI: all other systems reviewed are Neg Past Family Social History Past Medical History Mitral valve prolapse Hiatal hernia History bowel obstruction Obesity Hypothyroidism Osteoporosis Past Surgical History Status post umbilical hernia repair Status post partial colectomy Status post tonsillectomy Reported Medications Refer to EMR Allergies: Coded Allergies: No Known Allergies (Verified Allergy, Unknown, 06/30/17) Active Ordered Medications Refer to EMR Family History Reviewed and noncontributory Social History Occasional alcohol use Denies tobacco or illicit drug abuse history Physical Exam Vital Signs Date Time Temp Pulse Resp B/P (MAP) Pulse Ox O2 Delivery O2 Flow Rate FiO2 07/01/17 12:15 102.0 91 16 118/57 (77) 94 07/01/17 10:22 92 Nasal Cannula 2.00 07/01/17 08:04 98.9 82 16 148/72 (97) 78 07/01/17 05:12 98.0 58 18 106/57 (73) 100 06/30/17 23:37 98.8 65 20 102/52 (69) 94 06/30/17 20:08 98.6 84 20 106/51 (69) 91 06/30/17 18:32 06/30/17 18:13 100.8 85 20 146/63 (90) 100 Nasal Cannula 2.00 06/30/17 17:34 98 06/30/17 16:49 99.9 79 24 149/78 (101) 99 Nasal Cannula 3.00 06/30/17 15:21 77 18 210/93 (132) 99 Nasal Cannula 3.00 06/30/17 15:06 98.4 73 18 184/143 (157) 99 Nasal Cannula 2.00 06/30/17 14:31 98.0 62 16 159/70 (99) 99 Room Air 06/30/17 13:48 59 16 06/30/17 13:43 98.0 64 16 166/72 (103) 95 Physical Exam GENERAL: This is a well-nourished, well-developed patient, in no apparent distress. SKIN: No rashes, ecchymoses or lesions. Cool and dry. HEAD: Atraumatic. Normocephalic. No temporal or scalp tenderness. EYES: Pupils equal round and reactive. Extraocular motions intact. No scleral icterus. No injection or drainage. ENT: Nose without bleeding, purulent drainage or septal hematoma. Throat without erythema, tonsillar hypertrophy or exudate. Uvula midline. Airway patent. NECK: Trachea midline. No JVD or lymphadenopathy. Supple, nontender, no meningeal signs. GASTROINTESTINAL: Abdomen soft, non-tender, nondistended. No hepato-splenomegaly , or palpable masses. No guarding. GENITOURINARY: No CVA tenderness MUSCULOSKELETAL: Extremities without clubbing, cyanosis, or edema. No joint tenderness, effusion, or edema noted. No calf tenderness. Negative Homans sign bilaterally. NEUROLOGICAL: Awake and alert. Cranial nerves II through XII intact. Motor and sensory grossly within normal limits. Five out of 5 muscle strength in all muscle groups. Normal speech. Lab results reviewed: Yes Laboratory Tests Test 06/30/17 13:34 06/30/17 13:50 06/30/17 14:30 07/01/17 08:20 Urine Color LIGHT-YELLOW Urine Turbidity CLEAR Urine pH 7.0 Urine Specific Hughes 1.016 Urine Protein NEG Urine Glucose (UA) NEG Urine Ketones NEG Urine Occult Blood TRACE Urine Nitrite NEG Urine Bilirubin NEG Urine Urobilinogen LESS THAN 2.0 Urine Leukocyte Esterase MOD Urine RBC 6 Urine WBC 21 Urine Bacteria RARE Microscopic Urinalysis Comment CULTURE INDICATED White Blood Count 9.7 8.9 Red Blood Count 4.32 4.52 Hemoglobin 11.8 12.2 Hematocrit 36.8 38.5 Mean Corpuscular Volume 85.2 85.3 Mean Corpuscular Hemoglobin 27.4 26.9 Mean Corpuscular Hemoglobin Concent 32.1 31.6 Red Cell Distribution Width 15.3 15.3 Platelet Count 169 145 Mean Platelet Volume 9.0 8.9 Neutrophils (%) (Auto) 86.4 91.6 Lymphocytes (%) (Auto) 6.6 4.2 Monocytes (%) (Auto) 5.8 3.1 Eosinophils (%) (Auto) 0.8 0.9 Basophils (%) (Auto) 0.4 0.2 Neutrophils # (Auto) 8.3 8.1 Lymphocytes # (Auto) 0.6 0.4 Monocytes # (Auto) 0.6 0.3 Eosinophils # (Auto) 0.1 0.1 Basophils # (Auto) 0.0 0.0 CBC Comment DIFF FINAL DIFF FINAL Differential Comment Prothrombin Time 10.5 Prothromb Time International Ratio 1.0 Activated Partial Thromboplast Time 23.1 Blood Urea Nitrogen 14 19 Creatinine 0.72 1.13 Random Glucose 122 83 Total Protein 7.3 7.2 Albumin 3.8 3.3 Calcium Level 9.0 8.6 Alkaline Phosphatase 50 48 Aspartate Amino Transf (AST/SGOT) 13 18 Alanine Aminotransferase (ALT/SGPT) 19 15 Total Bilirubin 0.8 2.0 Sodium Level 140 136 Potassium Level 3.7 4.1 Chloride Level 104 104 Carbon Dioxide Level 27.3 23.7 Anion Gap 9 8 Estimat Glomerular Filtration Rate 81 48 Lipase 105 Lactic Acid Level 1.2 Hematology Comments Date/Time Source Procedure Growth Status 06/30/17 13:34 Urine Random Urine Urine Culture Pending Received Result Diagram: 07/01/17 0820 07/01/17 0820 Personally reviewed images: Yes Imaging Last Impressions Abdomen/Pelvis CT 06/30/17 1419 Signed Impressions: Service Date/Time: , June 30, 2017 16:00 - CONCLUSION: 1. There is a 13 x 11 mm right renal stone causing obstruction at the UPJ level resulting in hydronephrosis and right perinephric inflammation. No other renal stones are present. 2. There is a left adrenal gland mass measuring 2.5 cm. It does not meet criteria for an adenoma on this contrast-enhanced examination. Suggest correlating with any prior imaging studies that could confirm stability. If no prior studies are available consider six-month followup adrenal protocol CT or MRI. 3. Severe right hip joint osteoarthritis. Llody Yoo MD Assessment and Plan Assessment and Plan Urologic impression: #1 obstructing 13 mm right ureteropelvic junction calculus causing hydronephrosis #2 urinary tract infection related to obstructive uropathy Plan: #1 keep patient nothing by mouth #2 patient scheduled for cystoscopy, right retrograde pyelogram and right ureteral stent placement #3 further management of the right renal calculus as an outpatient by her established urologist Dr. Aguirre after discharge from the hospital. Problem Qualifiers (1) Acute respiratory failure: Qualified Codes: J96.01 - Acute respiratory failure with hypoxia (2) Hypothyroidism: Qualified Codes: E03.9 - Hypothyroidism, unspecified Sd Rock MD Jul 01, 2017 12:58
[2017-07-01] MEDS ORDERED: ETOMIDATE 20 MG/10 ML VIAL ONE (13:04)
[2017-07-01] MEDS: PIPERACIL-TAZO 4.5 GM PREMIX 100 ML IV SCH ×2 (13:50→22:23)
--- NOTE | 2017-07-01 14:29 | PD.OP ---
Operative Report Date of Surgery: Jul 01, 2017 Preoperative Diagnosis: (1) Renal calculus, right Postoperative Diagnosis: (1) Renal calculus, right Procedure: Cystoscopy, right retrograde pyelogram and right ureteral stent placement Anesthesia: General Surgeon: Sd Rock Cashier(s): None Operation and Findings: Indication for procedure: Case of a pleasant 67-year-old female who presents with an obstructing 13 mm right ureteropelvic junction calculus and is brought to the operating suite for cystoscopy, right retrograde pyelogram and right ureteral stent placement. Operative procedure in detail: Patient was brought to the operating room suite and placed supine on the OR table. She was then placed under general anesthesia. She was then repositioned in the dorsal lithotomy position and prepped and draped in normal sterile fashion. After appropriate timeout was undertaken I proceeded with cystoscopic evaluation utilizing the rigid cystoscope with the 30 lens and 20 [place]i sheath. Both right and left ureteral orifice even correct anatomic position. There was clear efflux of urine from the left and no reflux of urine noted on the right. I then utilized a 6 [place] open-ended catheter and performed a right retrograde pyelogram study which demonstrated the obstructing right ureteropelvic junction calculus. A sensor 0.035 wire was advanced up the patient's right ureter and into the upper pole collecting system. A [place] 6 [place] / 22 cm long distance operator stent was then placed on the both cystoscopic and fluoroscopic guidance. Once the stent was in proper position the trailing string was removed. The cystoscope and right wire withdrawn and a 16 [place] 10 cc Clemens catheter was placed and connected to gravity drainage. The patient tolerated the procedures without complications and was transferred to the PACU in satisfactory condition. Sd Rock MD Jul 01, 2017 14:29
[2017-07-01] MEDS ORDERED: DO NOT ADM ANY ANTICOAGULANT DRUGS PRN (14:43)
--- NOTE | 2017-07-01 16:28 | RADRPT ---
EXAM DATE/TIME: 07/01/2017 16:09 [facility] COMPARISON: CT ABDOMEN & PELVIS W CONTRAST, June 30, 2017, 16:00. INDICATIONS : Chest pain and shortness of breath. MEDICAL HISTORY : Hypertension. Cardiovascular disease. SURGICAL HISTORY : Hernia repair. ENCOUNTER: Subsequent ACUITY: 1 day PAIN SCORE: 3/10 LOCATION: Bilateral chest FINDINGS: Portable AP view of the chest demonstrates a mildly enlarged cardiac silhouette. Lungs are underinfla pamella with mild interstitial opacities in the lower lung zones. No effusion or pneumothorax is identifi ed. Bones and soft tissues demonstrate no acute finding. There are degenerative changes at the glenoh umeral joints. CONCLUSION: 1. Underinflation with interstitial opacities at the lung bases which could represent atelectasis or could represent mild pulmonary edema. 2. Mild enlarged cardiac silhouette. Lloyd Yoo MD on July 01, 2017 at 16:24 Board Certified Radiologist. This report was verified electronically.
--- NOTE | 2017-07-01 21:25 | RADRPT ---
EXAM DATE/TIME: 07/01/2017 19:36 [facility] COMPARISON: No previous studies available for comparison. INDICATIONS : Bilateral leg pain. MEDICAL HISTORY : Hypothyroidism. Renal calculi. Arthritis. Dizziness. Mitral valve prolapse. Sleep apnea. HTN. Dyspnea . Bowel obstruction. Hiatal hernia. GERD. Osteoarthritis. Obesity. Hemorrhoids. Anxiety. SURGICAL HISTORY : Tonsillectomy.Umbilical hernia repair. Adenoidectomy. Partial colectomy. ENCOUNTER: Initial ACUITY: 1 day PAIN SCORE: 5/10 LOCATION: Bilateral legs. TECHNIQUE: Venous ultrasound of the left and right leg was performed from the inguinal ligament to the proximal calf. Real-time, color Doppler and spectral tracing, compression and augmentation techniques were us ed. FINDINGS: RIGHT LEG: There is normal compressibility of the deep venous system from the inguinal region to the proximal ca lf. No echogenic clot is seen in the lumen of the common femoral, femoral, popliteal, and posterior tibial veins. There is a normal response of the venous system to proximal and distal augmentation an d respiration. LEFT LEG: There is normal compressibility of the deep venous system from the inguinal region to the proximal ca lf. No echogenic clot is seen in the lumen of the common femoral, femoral, popliteal, and posterior tibial veins. There is a normal response of the venous system to proximal and distal augmentation an d respiration. CONCLUSION: No evidence of deep venous thrombosis within the lower extremities. Frank Angeles MD on July 01, 2017 at 21:23 Board Certified Radiologist. This report was verified electronically.
[2017-07-01] MEDS: oxyCODONE/ACETAMINOPHEN 10 MG/325 MG TAB PO PRN (22:37)
[2017-07-02] MEDS: HYDROmorphone HCL PF 1 MG/ML VIAL IV PUSH PRN (02:35)
[2017-07-02 02:48] LABS: AUTOMATED NEUTROPHIL # 5.6 TH/MM3 (1.8-7.7); BASOPHIL % 0.6 % (0.0-2.0); EOSINOPHIL # 0.1 TH/MM3 (0-0.4); EOSINOPHIL % 1.8 % (0.0-4.0); HEMATOCRIT 29.2 % (35.0-46.0); HEMO FLAGS DIFF FINAL; LYMPH % 7.2 % (9.0-44.0); LYMPHOCYTE # 0.5 TH/MM3 (1.0-4.8); MEAN CELL VOLUME 85.1 FL (80.0-100.0); MEAN CORPUSCULAR HEMOGLOBIN 28.2 PG (27.0-34.0); MEAN CORPUSCULAR HGB CONC 33.1 % (32.0-36.0); MONO % 7.7 % (0.0-8.0); NEUT % 82.7 % (16.0-70.0); PLATELET COUNT 115 TH/MM3 (150-450); RED BLOOD COUNT 3.44 MIL/MM3 (4.00-5.30); RED CELL DISTRIBUTION WIDTH 15.5 % (11.6-17.2); WHITE BLOOD COUNT 6.7 TH/MM3 (4.0-11.0)
[2017-07-02 03:31] LABS: ALKALINE PHOSPHATASE 36 U/L (45-117); ALT (GPT) 17 U/L (10-53); ANION GAP 6 MEQ/L (5-15); AST (GOT) 19 U/L (15-37); BICARBONATE 29.9 MEQ/L (21.0-32.0); BLOOD UREA NITROGEN 18 MG/DL (7-18); CHLORIDE 106 MEQ/L (98-107); GLOMERULAR FILTRATION RATE 57 ML/MIN (>89); MAGNESIUM 1.8 MG/DL (1.5-2.5); POTASSIUM 3.7 MEQ/L (3.5-5.1); SODIUM (NA) 142 MEQ/L (136-145); TOTAL BILIRUBIN ADULT 1.9 MG/DL (0.2-1.0)
[2017-07-02 05:05] VITALS: BP 109/56; PULSE 65; RESP 18; TEMP 98.3; O2SAT 99
[2017-07-02] MEDS: PIPERACIL-TAZO 4.5 GM PREMIX 100 ML IV SCH ×3 (05:27→21:52)
[2017-07-02] MEDS: LEVOTHYROXINE SODIUM 25 MCG TAB PO SCH (05:46)
[2017-07-02] MEDS: oxyCODONE/ACETAMINOPHEN 10 MG/325 MG TAB PO PRN ×2 (06:51→18:16)
[2017-07-02 08:05] VITALS: BP 93/54; PULSE 59; RESP 19; TEMP 98.4; O2SAT 97
[2017-07-02] MEDS: DOCUSATE SODIUM 50 MG/SENNA 8.6 MG TAB PO SCH ×2 (08:41→21:00)
[2017-07-02] MEDS: SODIUM CHLORIDE 0.9% FLUSH 10 ML FLUSH IV FLUSH SCH ×2 (09:00→21:00)
[2017-07-02 12:05] VITALS: BP 105/55; PULSE 63; RESP 18; TEMP 98.1; O2SAT 97
--- NOTE | 2017-07-02 15:20 | HHI.PR ---
Subjective Remarks Patient says she is feeling all right. Denies any chest pain or shortness of breath. She does report continued right lower flank pain. Continues with dysuria. Clemens is out patient continues incontinent and she has been at home for some time. Patient did have fever yesterday 102.3. Discussed with nursing. Objective Vital Signs Date Time Temp Pulse Resp B/P (MAP) Pulse Ox O2 Delivery O2 Flow Rate FiO2 07/02/17 12:05 98.1 63 18 105/55 (72) 97 07/02/17 08:05 98.4 59 19 93/54 (67) 97 07/02/17 08:00 2.00 07/02/17 05:05 98.3 65 18 109/56 (73) 99 07/02/17 03:11 16 07/01/17 23:30 98.3 80 18 118/55 (76) 96 07/01/17 19:49 97.7 66 18 124/60 (81) 95 07/01/17 17:49 95 Nasal Cannula 2.00 07/01/17 16:04 98.3 80 16 119/55 (76) 97 I/O 07/01/17 07/01/17 07/01/17 07/02/17 07/02/17 07/02/17 07:00 15:00 23:00 07:00 15:00 23:00 Intake Total 2173 ml 450 ml 1420 ml 1150 ml Output Total 900 ml 205 ml 800 ml 900 ml Balance 1273 ml 245 ml 620 ml 250 ml Intake Oral 240 ml 320 ml 1050 ml IV Total 1933 ml 0 ml 1100 ml 100 ml Other 450 ml Output Urine Total 900 ml 200 ml 800 ml 900 ml Estimated Blood Loss 5 ml # Bowel Movements 1 0 2 Result Diagram: 07/02/1722407/02/17224 Objective Remarks GENERAL: Patient sitting up in bed. Appears comfortable. SKIN: Warm and dry. HEAD: Normocephalic. EYES: No scleral icterus. No injection or drainage. NECK: Supple, trachea midline. No JVD or lymphadenopathy. CARDIOVASCULAR: Regular rate and rhythm without murmurs, gallops, or rubs. RESPIRATORY: Breath sounds equal bilaterally. No accessory muscle use. GASTROINTESTINAL: Abdomen soft, non-tender, nondistended. MUSCULOSKELETAL: No cyanosis, or edema. BACK: Nontender without obvious deformity. No CVA tenderness. A/P Assessment and Plan //Sepsis ICD Code: A41.9 - Sepsis, unspecified organism Plan: Patient is a 67-year-old female with primary medical history of mitral valve prolapse, hiatal hernia, morbid obesity, hypothyroidism, bowel obstruction who came into the hospital with severe right-sided abdominal and flank pain. Sepsis present on admission, patient presented with respiratory rate of 24 and a MAXIMUM TEMPERATURE of 100.8 on day of presentation to the hospital. The patient was given IV Rocephin in the emergency department. CT of the abdomen and pelvis showed 1. There is a 13 x 11 mm right renal stone causing obstruction at the UPJ level resulting in hydronephrosis and right perinephric inflammation. No other renal stones are present. 2. There is a left adrenal gland mass measuring 2.5 cm. If this does not meet criteria for an adenoma on this contrast enhanced examination. Suggest correlating with any prior imaging studies to confirm stability. Sepsis likely secondary to pyelonephritis. I will start the patient on IV Zosyn, obtain blood cultures and check lactic acid as per sepsis protocol. Neurology consulted, recommendations pending. Patient was on IV fluids for hydration, however given low oxygen saturation earlier today. Continue pain management and IV morphine. = Status post cystoscopy with right ureteral stent placement 07/01. Appreciate urology assistance. With repeat fever 102 on 07/01. Chest x-ray with some atelectasis. Repeat blood cultures pending. We'll repeat urinalysis. //Anemia. Hemoglobin 9.7 from yesterday. No signs of bleeding. Recheck labs tomorrow. // Pyelonephritis ICD Code: N12 - Tubulo-interstitial nephritis, not specified as acute or chronic = Continue IV Zosyn. Repeat urinalysis ordered. // Uropathy, obstructive ICD Code: N13.9 - Obstructive and reflux uropathy, unspecified Status: Acute Plan: Acute abdomen and pelvis as described above. Neurology consulted, most likely will need stent placement. = Status post cystoscopy with right ureteral stent placement 07/01. Appreciate urology assistance. //Acute respiratory failure ICD Code: J96.00 - Acute respiratory failure, unspecified whether with hypoxia or hypercapnia Plan: Patient had an oxygen saturation into the high 70s. Currently on 2 L nasal cannula satting 92%. Continue with supplemental oxygen to keep oxygen saturation more than 92%. Will check a chest x-ray and a BNP. = Chest x-ray 07/01 with atelectasis. BMP unremarkable. // Hypothyroidism ICD Code: E03.9 - Hypothyroidism, unspecified Plan: Continue levothyroxine 175 mg by mouth daily, dose which she is taking at home. = Check TSH as planned on previous note. // H/O mitral valve prolapse ICD Code: Z86.79 - Personal history of other diseases of the circulatory system Plan: Continue lisinopril. // Hydronephrosis of right kidney ICD Code: N13.30 - Unspecified hydronephrosis Plan: As per CT abdomen and pelvis described above. The patient has a ureteral stone in the right UPJ causing obstruction and hydronephrosis. == Status post cystoscopy with right ureteral stent placement 07/01. Appreciate urology assistance. // Adrenal mass, left ICD Code: E27.9 - Disorder of adrenal gland, unspecified Plan: CT of the abdomen and pelvis describes a 2.5 cm left adrenal gland mass. Upon review of the medical records, the patient had a CT of the abdomen and pelvis done in 07/16/05 comparison institution which described a stable 2 cm left adrenal gland mass. I recommend follow-up in 6 months with an adrenal protocol CT or MRI. // Bilateral calf pain ICD Code: M79.661 - Pain in right lower leg; M79.662 - Pain in left lower leg Plan: Bilateral Pain on exam. I will order venous Doppler ultrasound to rule out DVT. = Doppler negative for DVT. Patient reports chronic neuropathy. Assessment and Plan DVT prophylaxis: The patient currently on SCDs, I will add subcutaneous heparin. GI prophylaxis: Given that the patient has sepsis I will order a PPI. Discharge Planning Pending cultures and clinical resolution of sepsis. Last fever 07/01 = We'll need follow-up with urology as outpatient. Rene Caceres MD Jul 02, 2017 15:20
[2017-07-02 16:05] VITALS: BP 128/60; PULSE 92; RESP 18; TEMP 98.2; O2SAT 94
[2017-07-02 16:20] LABS: INDIRECT BILIRUBIN 1.1 MG/DL (0.0-0.8)
[2017-07-02] MEDS: SODIUM CHLOR 0.9% 1000 ML INJ 1,000 ML IV SCH (19:30)
[2017-07-02 20:00] VITALS: BP 104/51; PULSE 94; RESP 21; TEMP 98.5; O2SAT 98
[2017-07-02 23:09] VITALS: RESP 20
[2017-07-03] VITALS: BP 116/62; PULSE 79; RESP 19; TEMP 98.4; O2SAT 100
[2017-07-03] MEDS: oxyCODONE/ACETAMINOPHEN 10 MG/325 MG TAB PO PRN ×2 (00:35→10:07)
[2017-07-03] MEDS: SODIUM CHLOR 0.9% 1000 ML INJ 1,000 ML IV SCH (00:37)
[2017-07-03 04:00] VITALS: BP 109/53; PULSE 88; RESP 20; TEMP 99.3; O2SAT 95
[2017-07-03] MEDS: LEVOTHYROXINE SODIUM 25 MCG TAB PO SCH (05:33)
[2017-07-03] MEDS: PIPERACIL-TAZO 4.5 GM PREMIX 100 ML IV SCH ×2 (05:33→12:54)
[2017-07-03 08:02] LABS: AUTOMATED NEUTROPHIL # 3.4 TH/MM3 (1.8-7.7); BASOPHIL % 0.8 % (0.0-2.0); EOSINOPHIL # 0.3 TH/MM3 (0-0.4); EOSINOPHIL % 5.8 % (0.0-4.0); HEMATOCRIT 27.2 % (35.0-46.0); HEMO FLAGS DIFF FINAL; LYMPH % 12.2 % (9.0-44.0); LYMPHOCYTE # 0.6 TH/MM3 (1.0-4.8); MEAN CELL VOLUME 85.5 FL (80.0-100.0); MEAN CORPUSCULAR HEMOGLOBIN 28.8 PG (27.0-34.0); MEAN CORPUSCULAR HGB CONC 33.7 % (32.0-36.0); MONO % 12.9 % (0.0-8.0); NEUT % 68.3 % (16.0-70.0); PLATELET COUNT 108 TH/MM3 (150-450); RED BLOOD COUNT 3.19 MIL/MM3 (4.00-5.30); RED CELL DISTRIBUTION WIDTH 15.1 % (11.6-17.2); WHITE BLOOD COUNT 4.9 TH/MM3 (4.0-11.0)
[2017-07-03 08:03] VITALS: O2SAT 95
[2017-07-03 08:05] VITALS: BP 131/61; PULSE 82; RESP 20; TEMP 98.7; O2SAT 92
[2017-07-03 08:17] LABS: BICARBONATE 27.3 MEQ/L (21.0-32.0); MAGNESIUM 1.9 MG/DL (1.5-2.5)
[2017-07-03] MEDS: DOCUSATE SODIUM 50 MG/SENNA 8.6 MG TAB PO SCH (09:00)
[2017-07-03] MEDS: SODIUM CHLORIDE 0.9% FLUSH 10 ML FLUSH IV FLUSH SCH (09:47)
[2017-07-03 10:12] LABS: INDIRECT BILIRUBIN 0.4 MG/DL (0.0-0.8); TOTAL BILIRUBIN ADULT 0.7 MG/DL (0.2-1.0)
[2017-07-03 12:05] VITALS: BP 147/74; PULSE 91; RESP 20; TEMP 97.6; O2SAT 92
--- NOTE | 2017-07-03 12:43 | HHI.FF ---
Face to Face Verification Diagnosis: (1) Renal calculus, right (2) Hydronephrosis of right kidney (3) Pyelonephritis Physical Therapy Order: Evaluate and Treat Home Health Nursing Order: Nursing assessment with vital signs Instructions: Home health for medication management. Digester Hand Order: To Provide: Long range planning I have seen patient Brandy Oliveira on 07/03/17. My clinical findings support the need for the requested home health care services because: Deconditioned w/ increased weakness I certify that my clinical findings support that this patient is homebound because: Unsafe to leave home unassisted Resume home health care. Rene Caceres MD Jul 03, 2017 12:43
[2017-07-03] MEDS ORDERED: LEVOFLOXACIN 750 MG TAB PO ONE (13:00)
[2017-07-03 13:25] LABS: BACTERIA, URINE FEW /hpf; BLOOD, URINE LARGE (NEG); COMMENT (UR) CULTURE INDICATED; CULTURE IF INDICATED CULTURE INDICATED; GLUCOSE,URINE NEG (NEG); KETONE, URINE NEG (NEG); NITRITE,URINE NEG (NEG); SQUAMOUS EPITHELIAL CELL URINE 34 /hpf (0-5); URINE COLOR YELLOW (YELLW/STRAW)
[2017-07-03] MEDS ORDERED: RESP: ALBUTEROL 2.5 MG/IPRATROPIUM 0.5 MG NEB (SCH) NEB ONE (14:30)
[2017-07-03] MEDS ORDERED: LEVO175T2 PO (14:33)
[2017-07-03] MEDS ORDERED: LEVO750T3 PO (14:33)
[2017-07-03] MEDS ORDERED: OXYGENDME NAS.CANULA (14:34)
--- NOTE | 2017-07-03 14:51 | RADRPT ---
EXAM DATE/TIME: 07/03/2017 14:35 [facility] COMPARISON: CHEST SINGLE AP, July 01, 2017, 16:09. INDICATIONS : Short of breath MEDICAL HISTORY : Hypothyroidism. Renal calculi. Arthritis. Dizziness. Mitral valve prolapse. Sleepapnea. HTN. Dyspnea. Bowel obstruction. Hiatal hernia. GERD. Osteoarthritis. ObesityHemorrhoids. Anxiety. SURGICAL HISTORY : Hemorrhoids. Anxiety.colectomy. ENCOUNTER: Subsequent ACUITY: 3 days PAIN SCORE: 0/10 LOCATION: chest FINDINGS: A single view of the chest demonstrates the lungs to be symmetrically aerated without evidence of mas s, infiltrate or effusion. There continues to be prominence of pulmonary vasculature suggestive of pu lmonary venous congestion. The pulmonary congestion appears to be mildly improved compared to the ro[place]anna or study. The heart size is enlarged but stable.. Osseous structures are intact and stable. CONCLUSION: 1. Pulmonary venous congestion which appears to be mildly improved compared to the prior exam. 2. Stable moderate diffuse cardiomegaly. Jad Castro MD on July 03, 2017 at 14:49 Board Certified Radiologist. This report was verified electronically.
[2017-07-03 15:32] VITALS: O2SAT 92
[2017-07-03] MEDS ORDERED: RESP: ALBUTEROL 2.5 MG/IPRATROPIUM 0.5 MG NEB (PRN) NEB (16:00)
--- NOTE | 2017-07-03 21:13 | HHI.DS ---
Discharge Summary Admission Date Jun 30, 2017 at 16:41 Discharge Date: Jul 03, 2017 Admitting Diagnosis Obstructive Uropathy. (1) Sepsis ICD Code: A41.9 - Sepsis, unspecified organism (2) Pyelonephritis ICD Code: N12 - Tubulo-interstitial nephritis, not specified as acute or chronic (3) Uropathy, obstructive ICD Code: N13.9 - Obstructive and reflux uropathy, unspecified Status: Acute (4) Acute respiratory failure ICD Code: J96.00 - Acute respiratory failure, unspecified whether with hypoxia or hypercapnia (5) Hypothyroidism ICD Code: E03.9 - Hypothyroidism, unspecified (6) H/O mitral valve prolapse ICD Code: Z86.79 - Personal history of other diseases of the circulatory system (7) Hydronephrosis of right kidney ICD Code: N13.30 - Unspecified hydronephrosis (8) Adrenal mass, left ICD Code: E27.9 - Disorder of adrenal gland, unspecified (9) Bilateral calf pain ICD Code: M79.661 - Pain in right lower leg; M79.662 - Pain in left lower leg Procedures right-sided ureteral stent placement by urology. Brief History - From Admission Written by Anastasiia Dawn, acting as scribe for Dr. Cartagena on 06/30/17 at 17:50. Patient is a 67-year-old female with primary medical history of mitral valve prolapse, hiatal hernia, morbid obesity, hypothyroidism, bowel obstruction who came into the hospital with severe right-sided abdominal and flank pain. Patient states it is kidney stone about a week ago and that it was too large to pass that she should need to lose weight before doing a lithotripsy. She was seen at the [facility]. Patient was also found to have urinary tract infection and was started on Cipro. However patient states that she did not start the Cipro because she is having her dental work done. Patient had her tooth pulled this morning and it was the first time that she took the Cipro. Patient states that she had small bowel obstruction secondary to lysis of adhesion from hernia repair. States that her pain is now 6/10, right side to right flank area states it has improved after being given morphine. Patient reports chills. Denies chest pain, palpitations. Denies shortness of breath or dyspnea however she states that she cannot take deep breath earlier because of the pain that her saturation went down to the 80s and now she is on O2 nasal cannula. Denies nausea, vomiting, diarrhea. Denies dysuria or hematuria. CBC/BMP: 07/03/17 0623 07/03/17 0623 Significant Findings Laboratory Tests Test 07/01/17 08:20 07/02/17 02:25 07/03/17 06:23 07/03/17 12:50 Mean Corpuscular Hemoglobin 26.9 PG (27.0-34.0) Mean Corpuscular Hemoglobin Concent 31.6 % (32.0-36.0) Platelet Count 145 TH/MM3 (150-450) 115 TH/MM3 (150-450) 108 TH/MM3 (150-450) Neutrophils (%) (Auto) 91.6 % (16.0-70.0) 82.7 % (16.0-70.0) Lymphocytes (%) (Auto) 4.2 % (9.0-44.0) 7.2 % (9.0-44.0) Neutrophils # (Auto) 8.1 TH/MM3 (1.8-7.7) Lymphocytes # (Auto) 0.4 TH/MM3 (1.0-4.8) 0.5 TH/MM3 (1.0-4.8) 0.6 TH/MM3 (1.0-4.8) Blood Urea Nitrogen 19 MG/DL (7-18) Creatinine 1.13 MG/DL (0.50-1.00) Albumin 3.3 GM/DL (3.4-5.0) 2.6 GM/DL (3.4-5.0) 2.5 GM/DL (3.4-5.0) Total Bilirubin 2.0 MG/DL (0.2-1.0) 1.9 MG/DL (0.2-1.0) Estimat Glomerular Filtration Rate 48 ML/MIN (>89) 57 ML/MIN (>89) B-Type Natriuretic Peptide 122 PG/ML (0-100) Red Blood Count 3.44 MIL/MM3 (4.00-5.30) 3.19 MIL/MM3 (4.00-5.30) Hemoglobin 9.7 GM/DL (11.6-15.3) 9.2 GM/DL (11.6-15.3) Hematocrit 29.2 % (35.0-46.0) 27.2 % (35.0-46.0) Total Protein 5.8 GM/DL (6.4-8.2) 5.8 GM/DL (6.4-8.2) Alkaline Phosphatase 36 U/L (45-117) 42 U/L (45-117) Direct Bilirubin 0.8 MG/DL (0.0-0.2) 0.3 MG/DL (0.0-0.2) Indirect Bilirubin 1.1 MG/DL (0.0-0.8) Monocytes (%) (Auto) 12.9 % (0.0-8.0) Eosinophils (%) (Auto) 5.8 % (0.0-4.0) Calcium Level 8.2 MG/DL (8.5-10.1) Urine Turbidity HAZY (CLEAR) Urine Protein 30 mg/dL (NEG-TRACE) Urine Occult Blood LARGE (NEG) Urine Leukocyte Esterase LARGE (NEG) Urine RBC 78 /hpf (0-3) Urine WBC 149 /hpf (0-5) Urine WBC Clumps FEW (NONE) Urine Bacteria FEW /hpf (NONE) Urine Yeast with Hyphae FEW (NONE) Urine Yeast (Budding) RARE (NONE) Imaging Last Impressions Chest X-Ray 07/03/17 0000 Signed Impressions: Service Date/Time: Monday, July 03, 2017 14:35 - CONCLUSION: 1. Pulmonary venous congestion which appears to be mildly improved compared to the prior exam. 2. Stable moderate diffuse cardiomegaly. Jad Castro MD Lower Extremity Ultrasound 07/01/17 0000 Signed Impressions: Service Date/Time: Saturday, July 01, 2017 19:36 - CONCLUSION: No evidence of deep venous thrombosis within the lower extremities. Frank Angeles MD Abdomen/Pelvis CT 06/30/17 1419 Signed Impressions: Service Date/Time: June 16:00 - CONCLUSION: 1. There is a 13 x 11 mm right renal stone causing obstruction at the UPJ level resulting in hydronephrosis and right perinephric inflammation. No other renal stones are present. 2. There is a left adrenal gland mass measuring 2.5 cm. It does not meet criteria for an adenoma on this contrast-enhanced examination. Suggest correlating with any prior imaging studies that could confirm stability. If no prior studies are available consider six-month followup adrenal protocol CT or MRI. 3. Severe right hip joint osteoarthritis. Lloyd Yoo MD PE at Discharge AAOx3 NAD lying in bed Lungs clear to auscultation BL, no wheezing or rhonchi auscultated. abdomen soft, nt, nd - R CVA tenderness tenderness to palpation of BL calfs more prominent on the left, no erythema or warmth associated. There is good palpable peripheral pulses in both lower extremities. Warm and moist skin Hospital Course CT scan abdomen and pelvis showed right sided pyelonephritis with obstructing ureteral stone. Urology was consult to, and patient underwent right ureteral stent placement. She was started on broad-spectrum antibiotics with improvement in discomfort. Urinalysis from admission with only 21 white blood cells, with less than 10,000 colony forming units of mixed leonard. Repeat urinalysis at discharge with 78 RBCs, 149 WBCs, 34 squamous epithelial cells, and culture is pending. Patient was discharged on Levaquin to complete treatment course. Patient with decreased oxygen saturations down to 92% on room air. Chest x-ray shows/liver congestion likely secondary to IV fluids. Expect this to improve off of IV fluids. Patient is also found to have left adrenal gland mass as above. She may need repeat CT imaging in 6 months. Patient conveys understanding. For problem-based summary for most recent progress note, please see below. //Sepsis ICD Code: A41.9 - Sepsis, unspecified organism Plan: Patient is a 67-year-old female with primary medical history of mitral valve prolapse, hiatal hernia, morbid obesity, hypothyroidism, bowel obstruction who came into the hospital with severe right-sided abdominal and flank pain. Sepsis present on admission, patient presented with respiratory rate of 24 and a MAXIMUM TEMPERATURE of 100.8 on day of presentation to the hospital. The patient was given IV Rocephin in the emergency department. CT of the abdomen and pelvis showed 1. There is a 13 x 11 mm right renal stone causing obstruction at the UPJ level resulting in hydronephrosis and right perinephric inflammation. No other renal stones are present. 2. There is a left adrenal gland mass measuring 2.5 cm. If this does not meet criteria for an adenoma on this contrast enhanced examination. Suggest correlating with any prior imaging studies to confirm stability. Sepsis likely secondary to pyelonephritis. I will start the patient on IV Zosyn, obtain blood cultures and check lactic acid as per sepsis protocol. Neurology consulted, recommendations pending. Patient was on IV fluids for hydration, however given low oxygen saturation earlier today. Continue pain management and IV morphine. = Status post cystoscopy with right ureteral stent placement 07/01. Appreciate urology assistance. With repeat fever 102 on 07/01. Chest x-ray with some atelectasis. Repeat blood cultures pending. We'll repeat urinalysis. = 07/03. Repeat urinalysis finally obtained, however with significant squamous epithelial cells, obviously not from straight catheter. Will follow-up results. Patient discharged with Levaquin. //Anemia. Hemoglobin 9.7 from yesterday. No signs of bleeding. Recheck labs tomorrow. // Pyelonephritis ICD Code: N12 - Tubulo-interstitial nephritis, not specified as acute or chronic = Continue IV Zosyn. Repeat urinalysis ordered. // Uropathy, obstructive ICD Code: N13.9 - Obstructive and reflux uropathy, unspecified Status: Acute Plan: Acute abdomen and pelvis as described above. Neurology consulted, most likely will need stent placement. = Status post cystoscopy with right ureteral stent placement 07/01. Appreciate urology assistance. = Follow-up with urology as outpatient. //Acute respiratory failure ICD Code: J96.00 - Acute respiratory failure, unspecified whether with hypoxia or hypercapnia Plan: Patient had an oxygen saturation into the high 70s. Currently on 2 L nasal cannula satting 92%. Continue with supplemental oxygen to keep oxygen saturation more than 92%. Will check a chest x-ray and a BNP. = Chest x-ray 07/01 with atelectasis. BMP unremarkable. = 07/03. Patient with acceptable saturations on room air. Likely secondary to small amount of fluid overload from IV fluids. Expect to improve off of IV fluids. // Hypothyroidism ICD Code: E03.9 - Hypothyroidism, unspecified Plan: Continue levothyroxine 175 mg by mouth daily, dose which she is taking at home. = Check TSH as planned on previous note. // H/O mitral valve prolapse ICD Code: Z86.79 - Personal history of other diseases of the circulatory system Plan: Continue lisinopril. // Hydronephrosis of right kidney ICD Code: N13.30 - Unspecified hydronephrosis Plan: As per CT abdomen and pelvis described above. The patient has a ureteral stone in the right UPJ causing obstruction and hydronephrosis. == Status post cystoscopy with right ureteral stent placement 07/01. Appreciate urology assistance. // Adrenal mass, left ICD Code: E27.9 - Disorder of adrenal gland, unspecified Plan: CT of the abdomen and pelvis describes a 2.5 cm left adrenal gland mass. Upon review of the medical records, the patient had a CT of the abdomen and pelvis done in 07/16/05 [facility] which described a stable 2 cm left adrenal gland mass. I recommend follow-up in 6 months with an adrenal protocol CT or MRI. // Bilateral calf pain ICD Code: M79.661 - Pain in right lower leg; M79.662 - Pain in left lower leg Plan: Bilateral Pain on exam. I will order venous Doppler ultrasound to rule out DVT. = Doppler negative for DVT. Patient reports chronic neuropathy. Assessment and Plan DVT prophylaxis: The patient currently on SCDs, I will add subcutaneous heparin. GI prophylaxis: Given that the patient has sepsis I will order a PPI. Pt Condition on Discharge: Good Discharge Disposition: Disch w/ Home Health Serv Discharge Time: > 30 minutes Discharge Instructions DIET: Follow Instructions for: Diabetic Diet Activities you can perform: Regular-No Restrictions Follow up Referrals: PCP Follow-up - 1 Week with Saurav Muñoz MD Urology - 1 Week with Escobar Aguirre M.d. New Medications: Levofloxacin (Levofloxacin) 750 Mg Tablet 750 MG PO DAILY for Infection for 8 Days, #8 TAB 0 Refills Oxygen (O2) (Oxygen (O2)) Device LITER RAFAELA.CANULA CONTINUOUS for Prevent Hypoxemia, #2 Oxygen Concentrator Portable Gaseous 2 L/min via Nasal Canula Continuous For 99 months Continued Medications: Levothyroxine (Levothyroxine) 175 Mcg Tab 175 MCG PO DAILY for Thyroid for 30 Days, #30 TAB 0 Refills (This prescription has been renewed) Tramadol (Tramadol) 50 Mg Tab 50 MG PO Q6H PRN for PAIN, TAB 0 Refills Discontinued Medications: Levothyroxine (Levothyroxine) 25 Mcg Tab 25 MCG PO DAILY for Thyroid, #30 TAB 0 Refills Lisinopril (Lisinopril) 10 Mg Tab 10 MG PO DAILY, #30 TAB 0 Refills Rene Caceres MD Jul 03, 2017 21:13
[2017-07-04] MEDS ORDERED: LEVOFLOXACIN 750 MG TAB PO SCH (09:00)
== END 2017-07-03 17:37 | disposition home health service (06) | DRG 693 ==
LOC: NEPD 13:29 → NEDA 16:41 → N04A 18:37
PROVIDERS: ADMIT Internal Medicine; ATTEND Internal Medicine
PROC: 0T768DZ Dilation of Right Ureter with Intraluminal Device, Via Natural or Artificial Opening Endoscopic (ICD-10-PCS; 2017-07-01)
PROC: BT1D1ZZ Fluoroscopy of Right Kidney, Ureter and Bladder using Low Osmolar Contrast (ICD-10-PCS; principal; 2017-07-01 13:13)
DX: N13.2 Hydronephrosis with renal and ureteral calculous obstruction (principal); A41.9 Sepsis, unspecified organism; J96.00 Acute respiratory failure, unspecified whether with hypoxia or hypercapnia; Z68.45 Body mass index [BMI] 70 or greater, adult; J98.11 Atelectasis; N39.0 Urinary tract infection, site not specified; N20.0 Calculus of kidney; E66.01 Morbid (severe) obesity due to excess calories; E03.9 Hypothyroidism, unspecified; I34.1 Nonrheumatic mitral (valve) prolapse; K44.9 Diaphragmatic hernia without obstruction or gangrene; M81.0 Age-related osteoporosis without current pathological fracture; E27.9 Disorder of adrenal gland, unspecified; M79.661 Pain in right lower leg; M79.662 Pain in left lower leg; D64.9 Anemia, unspecified; G62.9 Polyneuropathy, unspecified
CPT/HCPCS: 71010; 74177; 80053; 80069; 80076; 81001; 82248; 83605; 83690; 83735; 83880; 84100; 84443; 85025; 85610; 85730; 87040; 87086; 93005; 93970; 94150; 94620; 94664; 94667; 94668; 96361; 96374; 96375; C1769; J0696; J1170; J1885; J2270; J2405; J2543; J7030; J7120; Q9967